=== PATIENT | male | born 1965 | race Caucasian/White ===

== ENCOUNTER 2017-11-28 12:07 | Emergency (ER) | payer SELFPAY ==
[~2017-11-28] VITALS: Ht 162.6 cm; Wt 59.0 kg
[2017-11-28] MEDS ORDERED: ACETAMINOPHEN 325MG TABLET PO ONE (17:00)
[2017-11-28] MEDS ORDERED: TETANUS, DIPHTHERIA, PERTUSSIS VAC/PF 0.5ML (>7YR OLD) IM ONE (17:00)
[2017-11-28] MEDS ORDERED: BACITRACIN ZINC OINT UDPKT TOP ONE (17:00)
[2017-11-28] MEDS ORDERED: IBUPROFEN 800MG TABLET PO ONE (17:00)
[2017-11-28 17:10] VITALS: BP 108/54
== END 2017-11-28 19:12 | disposition home or self-care (01) ==
LOC: ER 12:26
DX: S92.351B Displaced fracture of fifth metatarsal bone, right foot, initial encounter for open fracture (principal); S92.341B Displaced fracture of fourth metatarsal bone, right foot, initial encounter for open fracture; S70.211A Abrasion, right hip, initial encounter; S80.02XA Contusion of left knee, initial encounter; Y04.2XXA Assault by strike against or bumped into by another person, initial encounter; Y93.89 Activity, other specified; Y92.89 Other specified places as the place of occurrence of the external cause; Z23 Encounter for immunization
CPT/HCPCS: 12001; 29125; 73130; 73562; 73590; 82962; 90471; 90715; 99285